=== PATIENT | female | born 2005 | race Caucasian/White ===

== ENCOUNTER 2025-03-07 23:05 | Emergency (ER) | payer MEDICAID ==
[~2025-03-07] VITALS: Ht 167.6 cm; Wt 55.9 kg
[2025-03-07 23:12] VITALS: BP 121/77; PULSE 100; RESP 18; TEMP 98.7; O2SAT 99
== END 2025-03-08 02:19 | disposition home or self-care (01) ==
LOC: EDSEX 23:12 → EMS 23:12
DX: R07.89 Other chest pain (principal)
CPT/HCPCS: 93005; 99283